=== PATIENT | female | born 2000 | race Caucasian/White ===

== ENCOUNTER 2018-07-07 17:32 | Emergency (ER) | payer OTHER | END 2018-07-07 20:57 | disposition home or self-care (01) | LOC: JER 17:32 ==

== ENCOUNTER 2022-09-23 06:05 | Emergency (ER) | payer OTHER ==
[2022-09-23 06:17] VITALS: BMI 27.4
[2022-09-23] MEDS ORDERED: diphenhydrAMINE HCL 25 MG CAPSULE (FP) PO ONE ×2 (07:42→08:13)
[2022-09-23] MEDS ORDERED: DEXAMETHASONE 4 MG TABLET (FP) PO ONE (07:47)
[2022-09-23] MEDS ORDERED: DEXAMETHASONE 4 MG TABLET (FP) ONE (08:13)
[2022-09-23 08:17] VITALS: BP 110/64; PULSE 68; RESP 16; TEMP 98.7
== END 2022-09-23 08:17 | disposition home or self-care (01) ==
LOC: JER 06:05
DX: R21 Rash and other nonspecific skin eruption (principal)
CPT/HCPCS: 99283-25